=== PATIENT | male | born 1960 | race Two or more races ===

== ENCOUNTER 2017-09-06 16:40 | Emergency (ER) | payer SELFPAY ==
[~2017-09-06] VITALS: Ht 175.3 cm; Wt 90.7 kg
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
[2017-09-06] MEDS ORDERED: Acetaminophen 500mg (ES) tab ORAL ONE ×2 (17:15→19:21)
[2017-09-06] MEDS ORDERED: Methocarbamol 500mg tab ORAL ONE ×2 (17:15→19:21)
[2017-09-06] MEDS ORDERED: LIDOCAINE700 M1 TP (18:54)
[2017-09-06] MEDS ORDERED: ROBAXIN500 MG PO (18:54)
[2017-09-06] MEDS ORDERED: TYLENOL EXTRA500 MG ORAL (18:54)
[2017-09-06 19:20] VITALS: BP 158/96
[2017-09-06 19:38] VITALS: BP 158/96
--- NOTE | 2017-09-07 08:34 | Diagnostic Imaging Report ---
Indication: Pain Technique: 3 views of the lumbar spine Comparison: None Findings: There is mild levoscoliotic deformity, may be an artifact of positioning. Bony alignment is otherwise normal. There is degenerative disc narrowing at L5-S1. The remainder the disc spaces are preserved. The vertebral body heights are preserved. No acute fractures. No dislocations. Sacral iliac joint spaces are preserved. Pedicles are intact Impression: Mild degenerative changes. No acute bony trauma
== END 2017-09-06 19:38 | disposition home or self-care (01) ==
LOC: EDBD 16:40 → EMR 17:05
DX: M54.5 Low back pain (principal); I10 Essential (primary) hypertension; Z88.2 Allergy status to sulfonamides
CPT/HCPCS: 72020; 99284